=== PATIENT | male | born 1950 | race Caucasian/White ===

== ENCOUNTER 2020-11-26 09:04 | Emergency (ER) | payer MEDICARE ==
--- NOTE | 2020-11-26 10:15 | EDM.PDOC ---
ED HPI GENERAL MEDICAL PROBLEM - General Chief Complaint: Gastrointestinal Problem Stated Complaint: BLOOD IN STOOL Time Seen by Provider: 11/26/20 09:15 - History of Present Illness INITIAL COMMENTS - FREE TEXT/NARRATIVE: 70-year-old male presents the emergency room with rectal bleeding. Around 630 this morning patient had a single BM where he passed some straight bright red blood from the rectum. This was not mixed with any stool. The patient has some lower discomfort even a little bit below his bladder he has a left inguinal hernia that he has to reduce every once in a while but this has not been giving him too much trouble. His past medical history is for the most part unremarkable except he is treated for hypertension. He has not had any chest pain breathing difficulties or shortness of breath no nausea no vomiting and just is very low abdomen pelvic pain. He has had some urinary frequency but this is fairly normal for him. Patient denies anything initially that is bright red in his diet however after thinking about it he has been using some super beet chews. Lower Abdominal Pain Score (Numeric/FACES): 3 - Related Data Allergies Allergy/AdvReac Type Severity Reaction Status Date / Time amoxicillin Allergy Cannot Verified 11/26/20 09:23 Remember Home Meds: Home Meds Hydrocortisone [Anusol-Hc] 30 gm TP BID #1 cream..g. 11/26/20 [Rx] Past Medical History Cardiovascular History: Reports: Hypertension Genitourinary History: Reports: Renal Calculus - Infectious Disease History Infectious Disease History: Reports: Chicken Pox - Past Surgical History HEENT Surgical History: Reports: Oral Surgery Social & Family History - Tobacco Use Tobacco Use Status *Q: Never Tobacco User Second Hand Smoke Exposure: No - Caffeine Use Caffeine Use: Reports: Coffee ED ROS GENERAL - Review of Systems Review Of Systems: See Below Constitutional: Reports: No Symptoms HEENT: Reports: No Symptoms Respiratory: Reports: No Symptoms Cardiovascular: Reports: No Symptoms GI/Abdominal: Reports: Bloody Stool, Other (Very low abdominal pelvic discomfort anterior). Denies: Constipation, Diarrhea, Nausea, Vomiting : Reports: No Symptoms Neurological: Reports: No Symptoms ED EXAM, GI/ABD - Physical Exam Exam: See Below Exam Limited By: No Limitations General Appearance: Alert, No Apparent Distress Head: Atraumatic, Normocephalic Neck: Normal Inspection, Supple, Non-Tender, Full Range of Motion Respiratory/Chest: No Respiratory Distress, Lungs Clear, Normal Breath Sounds Cardiovascular: Regular Rate, Rhythm, No Edema, No Murmur GI/Abdominal Exam: Normal Bowel Sounds, Soft, Other (For the most part he has a normal abdominal exam in the area just below the bladder he has some discomfort with palpation.). No: Guarding, Rigid, Rebound (Male) Exam: Other (He has some mild discomfort left inguinal area he does not have any active tissue protruding at this point) Rectal (Males) Exam: Other (1 small external hemorrhoid at the at the most anterior position he also has an internal hemorrhoid associated with this that is small. No gross blood noted however on removal of the exam glove there is some red material in the end of the examination failure. Interestingly this hemocculted negative) Back Exam: Normal Inspection. No: CVA Tenderness (L), CVA Tenderness (R) Extremities: Normal Inspection, No Pedal Edema Neurological: Alert, Oriented, Normal Cognition Course - Vital Signs Last Recorded V/S: Last Vital Signs Temp 37.3 C 11/26/20 09:19 Pulse 87 11/26/20 09:19 Resp 16 11/26/20 09:19 BP 170/110 H 11/26/20 09:19 Pulse Ox 97 11/26/20 09:19 - Orders/Labs/Meds Orders: Active Orders 24 hr Category Date Time Status Bladder Scan [RC] ASDIRECTED Care 11/26/20 10:10 Active Labs: Laboratory Tests 11/26/20 11/26/20 11/26/20 Range/Units 10:20 10:30 10:30 WBC 8.64 (4.23-9.07) K/mm3 RBC 5.71 (4.63-6.08) M/mm3 Hgb 17.7 H (13.7-17.5) gm/dl Hct 50.7 (40.1-51.0) % MCV 88.8 (79.0-92.2) fl MCH 31.0 (25.7-32.2) pg MCHC 34.9 (32.2-35.5) g/dl RDW Std Deviation 41.9 (35.1-43.9) fL Plt Count 199 (163-337) K/mm3 MPV 11.8 (9.4-12.3) fl Neut % (Auto) 77.5 H (34.0-67.9) % Lymph % (Auto) 14.8 L (21.8-53.1) % [place] % (Auto) 6.6 (5.3-12.2) % Eos % (Auto) 0.5 L (0.8-7.0) Baso % (Auto) 0.5 (0.1-1.2) % Neut # (Auto) 6.70 H (1.78-5.38) K/mm3 Lymph # (Auto) 1.28 L (1.32-3.57) K/mm3 [place] # (Auto) 0.57 (0.30-0.82) K/mm3 Eos # (Auto) 0.04 (0.04-0.54) K/mm3 Baso # (Auto) 0.04 (0.01-0.08) K/mm3 PT 11.9 (9.7-12.0) SECONDS INR 1.11 APTT 27.5 (21.7-31.4) SECONDS Sodium (136-145) mEq/L Potassium (3.5-5.1) mEq/L Chloride (98-107) mEq/L Carbon Dioxide (21-32) mEq/L Anion Gap (5-15) BUN (7-18) mg/dL Creatinine (0.7-1.3) mg/dL Est Cr Clr Drug Dosing mL/min Estimated GFR (MDRD) (>60) mL/min BUN/Creatinine Ratio (14-18) Glucose (80-115) mg/dL Calcium (8.5-10.1) mg/dL Total Bilirubin (0.2-1.0) mg/dL AST (15-37) U/L ALT (16-63) U/L Alkaline Phosphatase (46-116) U/L Total Protein (6.4-8.2) g/dl Albumin (3.4-5.0) g/dl Globulin gm/dL Albumin/Globulin Ratio (1-2) Urine Color Yellow (Yellow) Urine Appearance Clear (Clear) Urine pH 6.0 (5.0-8.0) Ur Specific [place] 1.025 (1.005-1.030) Urine Protein 1+ H (Negative) Urine Glucose (UA) Negative (Negative) Urine Ketones Negative (Negative) Urine Occult Blood Negative (Negative) Urine Nitrite Negative (Negative) Urine Bilirubin Negative (Negative) Urine Urobilinogen 0.2 (0.2-1.0) Ur Leukocyte Esterase Negative (Negative) Urine RBC 0-5 (0-5) /hpf Urine WBC 0-5 (0-5) /hpf Ur Squamous Epith Cells 0-5 (0-5) /hpf Urine Bacteria Few (FEW) /hpf Urine Mucus Few (FEW) /hpf 11/26/20 Range/Units 10:30 WBC (4.23-9.07) K/mm3 RBC (4.63-6.08) M/mm3 Hgb (13.7-17.5) gm/dl Hct (40.1-51.0) % MCV (79.0-92.2) fl MCH (25.7-32.2) pg MCHC (32.2-35.5) g/dl RDW Std Deviation (35.1-43.9) fL Plt Count (163-337) K/mm3 MPV (9.4-12.3) fl Neut % (Auto) (34.0-67.9) % Lymph % (Auto) (21.8-53.1) % [place] % (Auto) (5.3-12.2) % Eos % (Auto) (0.8-7.0) Baso % (Auto) (0.1-1.2) % Neut # (Auto) (1.78-5.38) K/mm3 Lymph # (Auto) (1.32-3.57) K/mm3 [place] # (Auto) (0.30-0.82) K/mm3 Eos # (Auto) (0.04-0.54) K/mm3 Baso # (Auto) (0.01-0.08) K/mm3 PT (9.7-12.0) SECONDS INR APTT (21.7-31.4) SECONDS Sodium 144 (136-145) mEq/L Potassium 3.2 L (3.5-5.1) mEq/L Chloride 104 (98-107) mEq/L Carbon Dioxide 26 (21-32) mEq/L Anion Gap 17.2 H (5-15) BUN 17 (7-18) mg/dL Creatinine 1.2 (0.7-1.3) mg/dL Est Cr Clr Drug Dosing 69.44 mL/min Estimated GFR (MDRD) > 60 (>60) mL/min BUN/Creatinine Ratio 14.2 (14-18) Glucose 110 (80-115) mg/dL Calcium 9.0 (8.5-10.1) mg/dL Total Bilirubin 1.0 (0.2-1.0) mg/dL AST 27 (15-37) U/L ALT 63 (16-63) U/L Alkaline Phosphatase 73 (46-116) U/L Total Protein 7.5 (6.4-8.2) g/dl Albumin 3.9 (3.4-5.0) g/dl Globulin 3.6 gm/dL Albumin/Globulin Ratio 1.1 (1-2) Urine Color (Yellow) Urine Appearance (Clear) Urine pH (5.0-8.0) Ur Specific [place] (1.005-1.030) Urine Protein (Negative) Urine Glucose (UA) (Negative) Urine Ketones (Negative) Urine Occult Blood (Negative) Urine Nitrite (Negative) Urine Bilirubin (Negative) Urine Urobilinogen (0.2-1.0) Ur Leukocyte Esterase (Negative) Urine RBC (0-5) /hpf Urine WBC (0-5) /hpf Ur Squamous Epith Cells (0-5) /hpf Urine Bacteria (FEW) /hpf Urine Mucus (FEW) /hpf Meds: Medications Discontinued Medications Generic Name Dose Route Start Last Admin Trade Name Breezy PRN Reason Stop Dose Admin Potassium Chloride 40 meq 11/26/20 11:55 11/26/20 12:29 Klor-Con M20 PO 11/26/20 11:56 40 meq ONETIME ONE Administration - Re-Assessments/Exams Free Text/Narrative Re-Assessment/Exam: 11/26/20 12:42 His labs are stable he is not at all anemic. His potassium is a little low we have given him 40 mEq potassium here in the ED. The patient has a nonobstructed left inguinal hernia I do not know if this is causing some of his lower pelvic discomfort. His Hemoccult here in the department was negative there was some red debris on my glove he has been using super beat chews, I do not know if this was a fragment from that. The patient thought he could have a BM here in the department but was unable to. At this point will discharge home and have him follow-up with his regular provider who could make referrals for his hernia if he so wishes to have this fixed and further investigate this possible GI bleed issue. Departure - Departure Time of Disposition: 12:45 Disposition: Home, Self-Care 01 Clinical Impression: Left inguinal hernia, Hemorrhoids Clinical Impression: (Ruled Out): Left femoral hernia without obstruction or gangrene - Discharge Information Referrals: Mansoor Venegas MD [Primary Care Provider] - Forms: ED Department Discharge Additional Instructions: Return to the emergency room with any questions problems or worsening symptoms. Follow-up with your regular doctor later this week for recheck. Use the Anusol HC twice daily for 1 week. Sepsis Event Note (ED) - Evaluation Sepsis Screening Result: No Definite Risk - Focused Exam Vital Signs: Vital Signs Temp Pulse Resp BP Pulse Ox 11/26/20 09:19 37.3 C 87 16 170/110 H 97 - My Orders Last 24 Hours: My Active Orders 11/26/20 10:10 Bladder Scan [RC] ASDIRECTED - Assessment/Plan Last 24 Hours: My Active Orders 11/26/20 10:10 Bladder Scan [RC] ASDIRECTED
[2020-11-26] MEDS ORDERED: Potassium Chloride 20 MEQ Tab.ER PO ONE (11:55)
== END 2020-11-26 12:55 | disposition home or self-care (01) ==
LOC: JD.ED 09:04
DX: K40.90 Unilateral inguinal hernia, without obstruction or gangrene, not specified as recurrent (principal); K64.8 Other hemorrhoids; K64.4 Residual hemorrhoidal skin tags; Z88.0 Allergy status to penicillin; I10 Essential (primary) hypertension
CPT/HCPCS: 36415; 51798; 80053; 81001; 85025; 85610; 85730; 99283; A9270

== ENCOUNTER 2023-07-21 10:32 | Emergency (ER) | payer MEDICARE ==
[2023-07-21] MEDS ORDERED: Ondansetron 4 MG Tab.DIS PO ONE (11:31)
[2023-07-21 11:37] LABS: BASOPHILS PERCENT AUTO 0.3 % (0.0-1.0); EOSINOPHILS PERCENT AUTO 0.7 % (0.0-6.0); HEMATOCRIT 44.2 % (42.0-52.0); HEMOGLOBIN 15.6 gm/dl (14.0-18.0); IMMATURE GRAN ABSOLUTE AUTO 0.03 K/mm3 (0.00-0.05); IMMATURE GRAN PERCENT AUTO 0.5 % (0.0-0.4); LYMPHOCYTES ABSOLUTE AUTO 1.2 K/mm3 (1.0-4.8); LYMPHOCYTES PERCENT AUTO 20.7 % (24.0-44.0); MEAN CORPUSCULAR HEMOGLOBIN 33.6 pg (28.0-32.0); MEAN CORPUSCULAR HGB CONC 35.3 g/dl (32.0-36.0); MEAN CORPUSCULAR VOLUME 95.3 fl (83.0-99.0); MEAN PLATELET VOLUME 9.7 fl (9.4-12.4); MONOCYTES ABSOLUTE AUTO 0.5 K/mm3 (0.0-0.8); MONOCYTES PERCENT AUTO 7.8 % (0.0-8.0); NEUTROPHILS ABSOLUTE AUTO 4.1 K/mm3 (1.8-7.7); PLATELET COUNT,PLT 248 K/mm3 (150-400); RED BLOOD CELL COUNT 4.64 M/mm3 (4.52-5.90); WHITE BLOOD CELL COUNT,WBC 5.89 K/mm3 (3.9-11.3)
[2023-07-21 12:10] LABS: ALBUMIN 3.2 g/dl (3.4-5.0); ANION GAP 14.2 (5-15); BILIRUBIN TOTAL 1.2 mg/dL (0.2-1.0); BUN/CREATININE RATIO 12.7 (14-18); CALCIUM 8.9 mg/dL (8.5-10.1); CREATININE 1.1 mg/dL (0.7-1.3); EST CRCL DRUG DOSING (CG) 72.55 mL/min; POTASSIUM,K 3.2 mEq/L (3.5-5.1); PROTEIN TOTAL,TP 6.5 g/dl (6.4-8.2); TSH 1.635 uIU/mL (0.358-3.74)
[2023-07-21 13:06] LABS: BARBITURATE SCREEN,URINE NEGATIVE (CUTOFF=200); BENZODIAZEPINES SCREEN,URINE NEGATIVE (CUTOFF=150); BUPRENORPHINE SCREEN,URINE NEGATIVE (CUTOFF=10); METHADONE SCREEN, URINE NEGATIVE (CUT0FF=200); METHAMPHETAMINES SCREEN, URINE NEGATIVE (CUTOFF=500); OXYCODONE SCREEN,URINE NEGATIVE (CUT0FF=100); THC SCREEN,URINE 20 NG/ML NEGATIVE (CUTOFF=50)
[2023-07-21 13:11] LABS: AMPHETAMINES SCREEN, URINE NEGATIVE (CUTOFF=500)
[2023-07-21 13:54] LABS: CORONAVIRUS COVID-19 NAA NEGATIVE (NEGATIVE); INFLUENZA A NAA NEGATIVE (NEGATIVE)
[2023-07-21] MEDS ORDERED: Enoxaparin 40 MG/0.4 ML Syringe SUBCUT ONE (22:13)
[2023-07-21] MEDS ORDERED: traZODone 50 MG Tab PO PRN (22:15)
[2023-07-21] MEDS: Sennosides/Docusate Sodium 50-8.6 MG Tab PO SCH (23:12)
[2023-07-22] MEDS ORDERED: Ondansetron 4 MG Tab.DIS PO ONE (07:12)
[2023-07-22] MEDS ORDERED: hydrOXYzine HCl 25 MG Tab PO ONE (08:48)
[2023-07-22] MEDS ORDERED: Lisinopril 20 MG Tab PO SCH (09:00)
[2023-07-22] MEDS ORDERED: amLODIPine 5 MG Tab PO ONE (09:00)
[2023-07-22] MEDS ORDERED: amLODIPine 10 MG Tab PO ONE (09:00)
[2023-07-22] MEDS: Sennosides/Docusate Sodium 50-8.6 MG Tab PO SCH ×2 (09:00→22:56)
[2023-07-22] MEDS ORDERED: FLUoxetine 10 MG Cap PO ONE (19:11)
[2023-07-23] MEDS ORDERED: Cholecalciferol (Vitamin D3) 5,000 UNIT Cap PO SCH (09:00)
[2023-07-23] MEDS ORDERED: Carvedilol 6.25 MG Tab PO SCH (09:00)
[2023-07-23] MEDS ORDERED: Lisinopril 20 MG Tab PO SCH (09:00)
[2023-07-23] MEDS ORDERED: Cyanocobalamin (Vitamin B12) 1,000 MCG Tab PO SCH (09:00)
[2023-07-23] MEDS ORDERED: Enoxaparin 40 MG/0.4 ML Syringe SUBCUT SCH (09:00)
[2023-07-23] MEDS ORDERED: Sennosides/Docusate Sodium 50-8.6 MG Tab PO SCH (09:00)
[2023-07-23] MEDS: Polyethylene Glycol 3350 Powder 17 GM Packet PO SCH ×2 (10:26→10:33)
[2023-07-23] MEDS ORDERED: Cholecalciferol (Vitamin D3) 25 MCG Tab PO SCH (11:00)
[2023-07-23] MEDS ORDERED: Carboxymethylcellulose Sodium 1% Ophth Gel 15 ML Bottle EYEBOTH PRN ×2 (12:10→12:20)
[2023-07-23] MEDS ORDERED: Carboxymethylcellulose Sodium 1% Ophth Gel 15 ML Bottle EYEBOTH SCH ×2 (12:15→12:20)
[2023-07-23] MEDS ORDERED: traZODone 50 MG Tab PO SCH (21:00)
[2023-07-23] MEDS ORDERED: FLUoxetine 10 MG Cap PO SCH (21:00)
[2023-07-24] MEDS ORDERED: Pantoprazole 40 MG Tab.CR PO SCH (06:00)
== END 2023-07-23 14:40 | disposition other institution (70) ==
LOC: JD.ED 10:32
DX: F32.9 Major depressive disorder, single episode, unspecified (principal); I10 Essential (primary) hypertension; K21.9 Gastro-esophageal reflux disease without esophagitis; Z88.0 Allergy status to penicillin; Z79.899 Other long term (current) drug therapy; Z20.822 Contact with and (suspected) exposure to COVID-19
CPT/HCPCS: 0240U; 36415; 80053; 80143; 80179; 80306; 80307; 84443; 85025; 93005; 96372; 99285; A9270; J1650